=== PATIENT | male | born 1990 | race Caucasian/White ===

== ENCOUNTER 2025-05-25 13:12 | Emergency (ER) | payer MEDICAID ==
[~2025-05-25] VITALS: Ht 180.3 cm; Wt 75.0 kg
[2025-05-25 13:24] VITALS: BP 136/93; PULSE 84; RESP 18; TEMP 97.9; O2SAT 99
[2025-05-25 14:19] LABS: PH,URINE DRUG SCREEN 7.0 (5.0-8.0)
[2025-05-25 14:25] LABS: ALCOHOL, URINE DRUG SCREEN NEGATIVE (NEGATIVE); AMPHET/METH SCREEN,URINE NEGATIVE (NEGATIVE); BARBITURATE SCREEN, URINE NEGATIVE (NEGATIVE); CANNABINOID SCREEN,URINE POSITIVE (NEGATIVE); COCAINE SCREEN,URINE NEGATIVE (NEGATIVE); METHADONE SCREEN, URINE NEGATIVE (NEGATIVE)
[2025-05-25 14:30] LABS: PLATELET COUNT (AUTO) 318 K/uL (150-450); RED BLOOD CELL COUNT(AUTO) 4.75 MIL/uL (4.50-5.90); RED CELL DISTRIBUTION WIDTH 12.5 % (11.5-14.5); WHITE BLOOD COUNT (AUTO) 5.8 K/uL (4.5-11.0)
[2025-05-25 14:38] LABS: CALCIUM, TOTAL 9.1 mg/dL (8.8-10.5); CREATININE 0.95 mg/dL (0.60-1.30); GLOMERULAR FILTR. RATE CALC > 60 mL/min (>60); GLUCOSE,RANDOM 84 mg/dL (70-110); SODIUM SERUM 141 mmol/L (136-145); UREA NITROGEN, BLOOD 15 mg/dL (7-18)
[2025-05-25] MEDS ORDERED: OLAN5TAB52 PO (16:07)
[2025-05-25] MEDS ORDERED: ALPR-709 PO (16:07)
== END 2025-05-25 16:33 | disposition home or self-care (01) ==
LOC: EMS 13:27
DX: F14.10 Cocaine abuse, uncomplicated (principal); F16.10 Hallucinogen abuse, uncomplicated; F12.90 Cannabis use, unspecified, uncomplicated; Z90.89 Acquired absence of other organs; Z88.1 Allergy status to other antibiotic agents; Z88.2 Allergy status to sulfonamides; Z79.899 Other long term (current) drug therapy
CPT/HCPCS: 99283; 80048; 85025; 36415; 80307; G0480